=== PATIENT | female | born 1990 | race Two or more races ===

== ENCOUNTER 2017-08-28 16:33 | Emergency (ER) | payer BC ==
[2017-08-28 16:59] LABS: BASOPHILS % (AUTO) 0.3 %; EOSINOPHILS % (AUTO) 0.6 %; HGB - HEMOGLOBIN 12.8 g/dL (12.0-16.0); LYMPHOCYTES # (AUTO) 2.3 10^3/uL (1.5-3.5); LYMPHOCYTES % (AUTO) 34.3 %; MEAN CORPUSCULAR HEMOGLOBIN 27.8 pg (27.0-31.0); MEAN CORPUSCULAR HGB CONC 33.1 g/dL (32.0-36.0); MEAN PLATELET VOLUME 6.5 fL (7.9-10.8); MONOCYTES # (AUTO) 0.3 10^3/uL (0.0-1.0); MONOCYTES % (AUTO) 4.7 %; NEUTROPHILS % (AUTO) 60.1 %; PLT - PLATELET COUNT 271 10^3/uL (130-450); RED BLOOD COUNT 4.59 10^6/uL (4.20-5.40); RED CELL DISTRIBUTION WIDTH 14.8 % (12.0-15.0); WHITE BLOOD COUNT 6.7 x10^3/uL (4.8-10.8)
[2017-08-28 17:12] LABS: ALBUMIN 4.2 g/dL (3.2-5.5); ALBUMIN/GLOBULIN RATIO 1.1 (1.0-2.2); BILIRUBIN,TOTAL 0.5 mg/dL (0.2-1.0); CREATININE 0.7 mg/dL (0.4-1.0); TOTAL PROTEIN 8.2 g/dL (6.7-8.2)
--- NOTE | 2017-08-28 17:35 | ED Physician Documentation ---
PD HPI ABD PAIN - Stated complaint Stated Complaint: ABD PX - Chief complaint Chief Complaint: Abd Pain - History obtained from History obtained from: Patient - History of Present Illness Timing - onset: Other (About a week's worth of right pelvic pain that is nonmigratory and worse when walking, worse since last night without discharge or bleeding. She is in a monogamous relationship, last menstrual period August 08. No nausea, vomiting, fevers, or changes in bowel movements. She is status post remote appendectomy.) Review of Systems Ten Systems: 10 systems reviewed and negative Constitutional: denies: Fever, Chills Cardiac: denies: Chest pain / pressure, Palpitations Respiratory: denies: Dyspnea, Cough GI: reports: Abdominal Pain. 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 - Present Medications Home Medications: Ambulatory Orders Medication Instructions Recorded Confirmed No Known Home Medications [No 08/28/17 08/28/17 Known Home Medications] - Allergies Allergies/Adverse Reactions: Allergies Allergy/AdvReac Type Severity Reaction Status Date / Time No Known Drug Allergies Allergy Verified 08/28/17 16:44 - Social History Does the pt smoke?: No Smoking Status: Never smoker Does the pt drink ETOH?: No Does the pt have substance abuse?: No - Immunizations Immunizations are current?: Yes - POLST Patient has POLST: No PD ED PE NORMAL - Vitals Vital signs reviewed: Yes - General General: Alert and oriented X 3, No acute distress - Cardiac Cardiac: RRR, No murmur - Respiratory Respiratory: No respiratory distress, Clear bilaterally - Abdomen Abdomen: Other (Soft with normal bowel tones, tender in the right pelvis below and medial to McBurney's point, no other abdominal tenderness. No peritoneal signs.) - Neuro Neuro: Alert and oriented X 3, Normal speech Results - Vitals Vitals: Vital Signs - 24 hr 08/28/17 08/28/17 16:42 19:14 Temperature 36.0 C L Heart Rate 76 86 Respiratory 16 16 Rate Blood Pressure 113/69 130/90 H O2 Saturation 97 99 Oxygen O2 Source Room air - Labs Labs: Laboratory Tests 08/28/17 08/28/17 08/28/17 16:53 16:53 17:45 WBC 6.7 RBC 4.59 Hgb 12.8 Hct 38.5 MCV 84.0 MCH 27.8 MCHC 33.1 RDW 14.8 Plt Count 271 MPV 6.5 L Neut # 4.0 Lymph # 2.3 [place] # 0.3 Eos # 0.0 Baso # 0.0 Absolute Nucleated RBC 0.00 Nucleated RBC % 0.0 Sodium 139 Potassium 3.4 L Chloride 100 L Carbon Dioxide 26 Anion Gap 13.0 BUN 13 Creatinine 0.7 Estimated GFR (MDRD) 101 Glucose 97 Calcium 10.0 Total Bilirubin 0.5 AST 18 ALT 13 Alkaline Phosphatase 46 Total Protein 8.2 Albumin 4.2 Globulin 4.0 Albumin/Globulin Ratio 1.1 Lipase 44 Urine Color YELLOW Urine Clarity CLEAR Urine pH 6.5 Ur Specific [place] 1.025 Urine Protein NEGATIVE Urine Glucose (UA) NEGATIVE Urine Ketones NEGATIVE Urine Occult Blood NEGATIVE Urine Nitrite NEGATIVE Urine Bilirubin NEGATIVE Urine Urobilinogen 0.2 (NORMAL) Ur Leukocyte Esterase NEGATIVE Ur Microscopic Review NOT INDICATED Urine Culture Comments NOT INDICATED Urine HCG, Qual 08/28/17 17:45 WBC RBC Hgb Hct MCV MCH MCHC RDW Plt Count MPV Neut # Lymph # [place] # Eos # Baso # Absolute Nucleated RBC Nucleated RBC % Sodium Potassium Chloride Carbon Dioxide Anion Gap BUN Creatinine Estimated GFR (MDRD) Glucose Calcium Total Bilirubin AST ALT Alkaline Phosphatase Total Protein Albumin Globulin Albumin/Globulin Ratio Lipase Urine Color Urine Clarity Urine pH Ur Specific [place] 1.025 Urine Protein Urine Glucose (UA) Urine Ketones Urine Occult Blood Urine Nitrite Urine Bilirubin Urine Urobilinogen Ur Leukocyte Esterase Ur Microscopic Review Urine Culture Comments Urine HCG, Qual NEGATIVE - Rads (name of study) Pelvic sono Radiology: See rad report (2.7 cm right ovarian cyst with small free fluid) Departure - Departure Disposition: 01 Home, Self Care Clinical Impression: Right ovarian cyst Condition: Good Record reviewed to determine appropriate education?: Yes Instructions: ED Cyst Ovarian Comments: Ibuprofen as needed for pain. 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 Return if worse.
[2017-08-28 18:10] LABS: BILIRUBIN,URINE NEGATIVE (NEGATIVE); GLUCOSE, URINE (UA) NEGATIVE (NEGATIVE); KETONES,URINE (UA) NEGATIVE (NEGATIVE); LEUKOCYTE ESTERASE, URINE NEGATIVE (NEGATIVE); NITRITE,URINE NEGATIVE (NEGATIVE); OCCULT BLOOD,URINE NEGATIVE (NEGATIVE); PH,URINE 6.5 PH (5.0-7.5); PROTEIN,URINE NEGATIVE (NEGATIVE); UROBILINOGEN,URINE 0.2 (NORMAL) E.U./dL (NORMAL)
[2017-08-28 18:12] LABS: CLARITY,URINE CLEAR (CLEAR); HCG UR QUAL NEGATIVE
[2017-08-28 19:19] VITALS: BP 130/90
--- NOTE | 2017-08-28 19:20 | Ultrasound Report ---
EXAM: PELVIC ULTRASOUND EXAM DATE: 08/28/2017 06:54 PM. CLINICAL HISTORY: R pelvic pain. COMPARISON: None. TECHNIQUE: Realtime transabdominal pelvic scan performed to identify the uterus and adnexa and as an overview of other pelvic structures, followed by transvaginal scan to provide greater detail of the u terus and adnexa, with static image documentation. FINDINGS: Uterus: 9.1 x 3.8 x 5.1 cm, volume cc. Anteverted position. Normal overall size and echotexture. Masses: None. Endometrium: 11 mm. Normal. Cervix: trace fluid in the cervix. B Right Ovary: 5 x 3.1 x 4.7 cm, volume 38.1 cc. There is a cyst in the right ovary measuring 2.5 x 2.4 x 2.7 cm. Blood flow is seen in the right ovarian tissue. Left Ovary: 3.7 x 1.5 x 3.6 cm, volume 10.3 cc. Normal echotexture and blood flow. Free Fluid: Small Other: None. IMPRESSION: 1. Right ovarian cyst measuring 2.7 cm in maximum diameter. 2. Small free fluid in the pelvis. 3. Blood flow present in both ovaries on Doppler. [facility] Referring Provider Line: [phone] SITE ID: [id number]
--- NOTE | 2017-08-28 19:20 | Ultrasound Preliminary Report ---
Exam: US PELVIC NON OB W/DOPPLER IMPRESSION: 1. Right ovarian cyst measuring 2.7 cm in maximum diameter. 2. Small free fluid in the pelvis. 3. Blood flow present in both ovaries on Doppler. [facility] SITE ID: [id number]
== END 2017-08-28 20:00 | disposition home or self-care (01) ==
LOC: ED 16:33
DX: N83.201 Unspecified ovarian cyst, right side (principal)
CPT/HCPCS: 36415; 76856; 80053; 81001; 81003; 81025; 83690; 85025; 87086; 93975; 99283

== ENCOUNTER 2017-09-01 13:52 | Outpatient (CLI) | payer BC | END 2017-09-01 13:53 | disposition critical access hospital (66) | LOC: EMS 13:52 | PROVIDERS: ATTEND Surgery | DX: R07.9 Chest pain, unspecified (principal) | CPT/HCPCS: A0425; A0429 ==

== ENCOUNTER 2017-09-01 14:28 | Emergency (ER) | payer BC ==
[2017-09-01] MEDS ORDERED: KETOROLAC 60 MG/2 ML VIAL IM STA (15:11)
[2017-09-01 15:13] VITALS: BP 120/71
--- NOTE | 2017-09-01 15:15 | ED Physician Documentation ---
History of Present Illness - Stated complaint Stated Complaint: CP - Chief complaint Chief Complaint: General - History obtained from History obtained from: Patient - History of Present Illness Timing: Other (Seen recently for UTI and on Keflex. Starting this morning she has had anterior chest pressure that is worse if she bends forward or takes a deep breath. She is not short of breath. She says she was seen at [facility] ER earlier today and a chest x-ray was done as well as lab work and EKG you and she had normal results. 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 - Present Medications Home Medications: Ambulatory Orders Medication Instructions Recorded Confirmed Meloxicam [Mobic] 7.5 mg PO BIDWM PRN #15 tablet 09/01/17 - Allergies Allergies/Adverse Reactions: Allergies Allergy/AdvReac Type Severity Reaction Status Date / Time No Known Drug Allergies Allergy Verified 08/28/17 16:44 - Social History Does the pt smoke?: No Smoking Status: Never smoker Does the pt drink ETOH?: No Does the pt have substance abuse?: No - Immunizations Immunizations are current?: Yes - POLST Patient has POLST: No PD ED PE NORMAL - Vitals Vital signs reviewed: Yes - General General: Alert and oriented X 3, No acute distress - Neck Neck: Supple, no meningeal sign, No bony TTP - Cardiac Cardiac: RRR, No murmur, Other (Tender over the anterior costochondral joints and winces with flexion of the upper back) - Respiratory Respiratory: No respiratory distress, Clear bilaterally - Abdomen Abdomen: Non tender - Extremities Extremities: No edema, No calf tenderness / cord - Neuro Neuro: Alert and oriented X 3, Normal speech Results - Vitals Vitals: Vital Signs - 24 hr 09/01/17 09/01/17 14:33 15:12 Temperature 36.8 C Heart Rate 74 84 Respiratory 16 14 Rate Blood Pressure 115/59 L 120/71 O2 Saturation 98 100 Oxygen O2 Source Room air - EKG (time done) 1453 Rate: Rate (enter#) (81) Rhythm: NSR [place]: Normal Intervals: Normal [place] QRS: Normal Ischemia: Normal ST segments Computer interpretation: Agree with computer PD MEDICAL DECISION MAKING - ED course ED course: 27-year-old woman with clinical costochondritis, it sounds like she has had an appropriate workup at another emergency department already today, however she was confused and doubted the relevance of the Keflex to this diagnosis and I agree, it is probably idiopathic costochondritis unrelated to the antibiotics, this is not a known side effect of Keflex. Departure - Departure Disposition: 01 Home, Self Care Clinical Impression: Costochondritis, acute Condition: Good Record reviewed to determine appropriate education?: Yes Instructions: Costochond Prescriptions: Meloxicam [Mobic] 7.5 mg PO BIDWM PRN #15 tablet PRN Reason: Pain Comments: Call your doctor to arrange a follow-up appointment, make the next available appointment. In the interim, return anytime if worse or if new symptoms develop.
== END 2017-09-01 15:21 | disposition home or self-care (01) ==
LOC: EDUNIT# → ED 14:28
DX: M94.0 Chondrocostal junction syndrome [Tietze] (principal)
CPT/HCPCS: 93005; 96372; 99283